=== PATIENT | female | born 1945 | race Caucasian/White ===

== ENCOUNTER 2021-03-28 11:09 | Emergency (ER) | payer BC ==
[~2021-03-28] VITALS: Ht 167.6 cm; Wt 71.8 kg
[2021-03-28] MEDS ORDERED: ondansetron 4mg rapidly disintigrating tab PO ONE (12:10)
[2021-03-28] MEDS ORDERED: ibuprofen tablet 400 MG TABLET PO ONE (12:10)
[2021-03-28] MEDS ORDERED: acetaminophen 325mg tablet PO ONE (12:10)
[2021-03-28 14:11] VITALS: BP 165/94
== END 2021-03-28 14:14 | disposition home or self-care (01) ==
LOC: ER 11:10
DX: S59.901A Unspecified injury of right elbow, initial encounter (principal); R11.0 Nausea; V89.2XXA Person injured in unspecified motor-vehicle accident, traffic, initial encounter; Y93.89 Activity, other specified; Y92.89 Other specified places as the place of occurrence of the external cause; Y99.8 Other external cause status
CPT/HCPCS: 73110; 73140; 73564; 99284